=== PATIENT | male | born 1980 | race Caucasian/White ===

== ENCOUNTER 2016-08-18 10:44 | Emergency (ER) | payer OTHER ==
[2016-08-18] MEDS ORDERED: Diazepam SYRINGE* 5 MG/ML 2 ML SYRINGE (10 MG total) IV ONE (12:19)
[2016-08-18] MEDS ORDERED: Ketorolac INJ* 30 MG/ML 1 ML VIAL IV PUSH ONE (12:19)
--- NOTE | 2016-08-18 12:25 | ED ---
Back Pain - HPI Summary HPI Summary: Pt here w/ acute on chronic back pain. Has been dealing with worsening of chronic pain for past 2 months. Had an MRI and results called in to him today - told he has multiple "slipped discs" and will be receiving injections through pain management (Dr. Patrick) but not until September 03 as his pain management provider is out of town. He has been taking tramadol through his PCP, Carole Stapleton [employer] since. If he takes this with flexeril, he can sometimes get the pain to subside to place that takes the edge off but really has not had good pain control in a while. Worse this morning while at work - was out spreading salt when he had excruciating pain in his back and radiating down into his Rt leg. Denies weakness, change in bowel/bladder habits - can still ambulate independently. No position is comfortable. - History of Current Complaint Chief Complaint: EDHipPelvisInjury Stated Complaint: RT LEG PAIN Time Seen by Provider: 08/18/16 11:15 Hx Obtained From: Patient Pain Intensity: 10 - Allergies/Home Medications Allergies/Adverse Reactions: Allergies Allergy/AdvReac Type Severity Reaction Status Date / Time LATEX Allergy Rash Uncoded 08/18/16 10:56 SILK TAPE Allergy Rash Uncoded 08/18/16 10:56 PMH/Surg Hx/FS Hx/Imm Hx Previously Healthy: Yes Endocrine/Hematology History: Denies: Hx Anticoagulant Therapy, Hx Blood Disorders Musculoskeletal History: Reports: Hx Back Problems - Lumbar DDD w/ new "slipped " discs Psychiatric History: Denies: Hx Substance Abuse Infectious Disease History: No Infectious Disease History: Denies: Traveled Outside the [place] in Last 30 Days - Family History Known Family History: Positive: None - Social History Occupation: Employed Full-time - maintanence worker Lives: With Family - son Alcohol Use: None Substance Use Type: Reports: Prescribed - tramadol Smoking Status (MU): Current Every Day Smoker Review of Systems Negative: Fever, Chills Negative: Chest Pain Negative: Shortness Of Breath Negative: Abdominal Pain, Vomiting, Diarrhea, Nausea Negative: incontinence Musculoskeletal: Other - see HPI Neurological: Negative Positive: Anxious All Other Systems Reviewed And Are Negative: Yes Physical Exam Triage Information Reviewed: Yes Vital Signs On Initial Exam: Initial Vitals Temp Pulse Resp BP Pulse Ox 99.2 F 103 17 146/97 100 08/18/16 10:56 08/18/16 10:56 08/18/16 10:56 08/18/16 10:56 08/18/16 10:56 Vital Signs Reviewed: Yes Appearance: Positive: Well-Appearing, Well-Nourished, Pain Distress Skin: Positive: Warm, Dry - no erythema no ecchymosis over affected areas Head/Face: Positive: Normal Head/Face Inspection Eyes: Positive: Normal, EOMI, Conjunctiva Clear ENT: Positive: Hearing grossly normal, Pharynx normal - mucosa moist Neck: Positive: Supple Respiratory/Lung Sounds: Positive: Breath Sounds Present Cardiovascular: Positive: Normal, RRR, Pulses are Symmetrical in both Upper and Lower Extremities Abdomen Description: Positive: Nontender, Soft Musculoskeletal: Positive: Pain @ - lumbar spine - leg is NTTP but reports pain into thigh on Rt Neurological: Positive: Normal, Sensory/Motor Intact, Alert, Oriented to Person Place, Time, CN Intact II-III, Reflexes Intact Psychiatric: Positive: Normal - Christopher Coma Scale Coma Scale Total: 15 Diagnostics - Vital Signs Vital Signs Temp Pulse Resp BP Pulse Ox 08/18/16 10:56 99.2 F 103 17 146/97 100 - Laboratory Lab Statement: Any lab studies that have been ordered have been reviewed, and results considered in the medical decision making process. Re-Evaluation - Re-Evaluation First Eval Change: Improved Back Pain Course/Dx - Course Course Of Treatment: Pt presents w/ acute on chronic lumbar back pain. With known h/o DDD via recent MRI and lack of findings today requiring CT scan and/ or emergent surgery, he was tx'd w/ steroids, toradol and diazepam w/ relief. Will be d/c'd home to continue meds and f/u w/ PCP/pain management. for further plan of care. Reviewed danger s/sx of when to return to ED. - Diagnoses Provider Diagnoses: Acute lumbar back pain, DDD (degenerative disc disease), lumbar - Provider Notifications Discussed Care of Patient With: Carole Stapleton NP - confirms pt dx and tx plan - states she will see him in f/u to discuss pain management beyond today - will notify Dr. Patrick and staff as well Discharge - Discharge Plan Condition: Stable Disposition: HOME Prescriptions: Diazepam TAB(*) [Valium TAB(*)] 5 mg PO TID PRN #9 tab MDD 3 PRN Reason: Pain Ketorolac TAB (NF) [Toradol TAB (NF)] 10 mg PO Q6H #20 tab predniSONE TAB* [Deltasone TAB*] 40 mg PO DAILY #5 tab Patient Education Materials: Degenerative Disc Disease (ED) Forms: *Work Release Referrals: Carole Stapleton, [employer] [Nurse Practitioner] - Celina PAZ,Giana [Medical Doctor] - Additional Instructions: Heat in morning with gentle stretches/movements to prevent stiffness - may try ice after to reduce pain/inflammation Take toradol pills every 6 hours with food until completed - DO NOT TAKE WITH ADVIL (IBUPROFEN), ASPIRIN OR ALEVE (NAPROXEN) Take prednisone every day until complete You may take acetaminophen 650mg every 6 hours for pain You may also take diazepam every 8 hours as needed for pain NOTE: this may cause drowsiness Follow-up with PCP this week as well as Dr. Patrick's office. *If you develop fever, abdominal pain, weakness, numbness, incontinence of bowel /bladder, return to ED
[2016-08-18] MEDS ORDERED: methylPREDNISolone SOD 40 MG* 1 ML VIAL IV ONE (12:32)
[2016-08-18 14:03] VITALS: BP 134/80
== END 2016-08-18 14:02 | disposition home or self-care (01) ==
LOC: ED 10:44
DX: M54.9 Dorsalgia, unspecified (principal); G89.29 Other chronic pain; F17.200 Nicotine dependence, unspecified, uncomplicated
CPT/HCPCS: 96374; 96375; 99282; J1885; J2920; J3360